=== PATIENT | male | born 1970 | race Caucasian/White ===

== ENCOUNTER 2016-04-29 16:24 | Emergency (ER) | payer MEDICARE, MEDICAID ==
[~2016-04-29] VITALS: Ht 185.4 cm; Wt 84.1 kg
[2016-04-29 16:50] VITALS: BP 131/77; PULSE 68; RESP 12; O2SAT 95
--- NOTE | 2016-04-29 20:00 | ED.REPORT ---
HPI-Rash / Abscess Date of Service Apr 29, 2016 ED Provider: Saman Decker PA-C Eldon is an otherwise healthy 46-year-old male with chief complaint of an abscess on his left buttock. He states it is been present for roughly 1 week. He was seen 3 days ago at the walk-in clinic in [place]. At that time they did not observe a drainable abscess according to the patient. He is placed on Bactrim. He reports that the abscess continues to grow. States it is quite painful when he sits on it. Denies systemic symptoms such as fever, chills, malaise, abdominal pain, vomiting, sweats. 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 Nursing Notes Stated Complaint: ABSCESS ON BUTTOCKS Chief Complaint: Skin Rash/Abscess Nursing Notes Reviewed: Yes Allergies: Coded Allergies: No Known Allergies (Unverified , 04/29/16) Scheduled Doxycycline Hyclate (Doxycycline Hyclate) 100 Mg Tablet 100 MG PO BID Scheduled PRN oxyCODONE (oxyCODONE) 5 Mg Capsule 5-10 MG PO Q4H PRN PRN For Pain General Time Seen by MD: 19:43 Chief Complaint Abscess Past Medical History Past Medical History MRSA Review of Systems Review of Systems Note: Negative unless stated otherwise in history of present illness Physical Exam General: Well appearing, well developed, well nourished, no acute distress. Left buttock: 3 cm area of induration located beneath the crease of the left buttock. Central area of crusting suggesting drainage. Surrounded by erythema in shape that is suggestive it is a reaction to adhesive from a bandage. No area of fluctuance is noted. Head: Atraumatic, normocephalic. Eyes: No scleral icterus or injection. No discharge. Vision grossly intact. ENT: Voice clear, hearing grossly intact. Respiratory: No respiratory distress, no increased work of breathing. Speaks in complete sentences. Skin: Warm and dry. Neurological: Grossly nonfocal. Psychological: alert and oriented. Speech appropriate, linear and logical. Behavior appropriate. Initial Vital Signs Vital Signs (First) Date Time Temp Pulse Resp B/P Pulse Ox O2 Delivery O2 Flow Rate FiO2 04/29/16 16:50 36.3 68 12 131/77 95 Room Air Initial VS: Reviewed, Vital signs normal Procedures Incision & Drainage Abscess Procedure Performed by: Allied health pract Consent / Setup / Site Prep: Informed consent provided, Consent from patient , Hand hygiene observed Skin Preparation Agent: Rey Local Anesthesia: Lidocaine w epi 1%, 2cc, 27g needle Incised Abscess with Scalpel: #11 Pus Drained: Small Irrigation: No Re-Eval/Medical Decision Med Decision/Clinical Course Otherwise healthy 46-year-old male presents with a area of redness and swelling below his left buttock and present for approximately one week. He was seen at an urgent care and prescribed Bactrim but the infection appears to have not responded significantly to it. He denies symptoms of systemic infection. I discussed the case with Dr. Martinez who met with and examined the patient. Examination reveals an area and thus, swelling, pain and heat as well as left buttock. Perform incision and drainage and extract a small amount of pus. Dressed with a medical ointment and gauze. Discharge patient with instructions for [id number] analgesia as well as a small amount of oxycodone supplement. Prescribed doxycycline 100 mg twice a day 7 days. Provided Primary care follow-up instructions as well as emergency return precautions. Patient understands and agrees with the plan. Discharge & Departure Departure Notes I noted that at the time of the patient's departure, I had not yet sent prescription for doxycycline to his pharmacy. That is been done now. I attempted to contact the patient at approximately [id number] by phone. I left a message asking him to call the emergency department. Impression: Primary Impression: Abscess Disposition: Home Discharge Condition All VS Reviewed: Yes Condition: Stable Patient Instructions: Abscess Incision and Drainage (ED) Additional Instructions: Evaluation for an abscess in the emergency department. He appear to have an abscess under her left buttock, as you are well aware. We incised and drained this, and got a small amount of pus out. This should improve your recovery. Because he has not responded well to the Bactrim, we will switch your medication to doxycycline 100 mg twice a day for 7 days. Keep the area clean and dry. Feel free to wash with soap and water, reapply antibiotic ointment and gauze daily. A small amount of redness and clear or pink drainage is normal. Increasing redness, swelling, pain and the appearance of pus indicates advancing infection. Return to emergency department for these or any other new or worsening symptoms. Likewise return for wound check if things are not clearly improved in 3 days. The pain is best treated with 400 mg of ibuprofen (Advil, Motrin) every 6 hours , or 1000 mg of acetaminophen (Tylenol) every 6 hours. These drugs can be taken at the same time for more severe pain. I will write a prescription for a small amount of oxycodone to supplement. Referrals: Harris Vick MD (PCP) EDSupervising Provider for APC: Zak Martinez DO Attending Statement I examined Mr. Sue myself. There is a small abscess. An incision and drainage was performed.. Small amount of pus was drained. I concur with the resident note and the plan. copies to: Harris Vick MD, Seth PA-C Apr 29, 2016 20:00 Zak Martinez DO May 01, 2016 11:56
[2016-04-29] MEDS ORDERED: OXYC5CAP4 PO (20:35)
[2016-04-29 20:52] VITALS: BP 117/68; PULSE 80; RESP 18; O2SAT 96
[2016-04-29] MEDS ORDERED: DOXY100T2 PO (21:14)
== END 2016-04-29 20:53 | disposition home or self-care (01) ==
LOC: SED 16:24
DX: L02.31 Cutaneous abscess of buttock (principal)